=== PATIENT | male | born 1990 | race Caucasian/White ===

== ENCOUNTER 2019-03-30 18:01 | Emergency (ER) | payer OTHER ==
[~2019-03-30] VITALS: Ht 180.3 cm; Wt 56.7 kg
[2019-03-30 18:01] VITALS: BP 118/76
--- NOTE | 2019-03-30 18:09 | NUR ---
PT PLACED IN BED 3, STATED HE WISHED TO LEAVE AT THIS TIME. PT REFUSED MEDICAL CARE. PT ALERT TO NAME, BIRTHDAY AND PLACE. PT WALKED OUT OF HOSPITAL. DR HERNANDES MADE AWARE.
[2019-03-31] MEDS ORDERED: ONDANSETRON 4 MG ODT ONE (01:21)
== END 2019-03-30 18:09 | disposition left against medical advice (07) ==
LOC: EDBD → MED 18:01
DX: R40.4 Transient alteration of awareness (principal); Z53.21 Procedure and treatment not carried out due to patient leaving prior to being seen by health care provider
CPT/HCPCS: Q0162

== ENCOUNTER 2019-03-30 22:31 | Emergency (ER) | payer OTHER ==
[~2019-03-30] VITALS: Ht 172.7 cm; Wt 55.3 kg
--- NOTE | 2019-03-31 00:52 | NUR ---
PT REFUSED AN IV, ER MADE AWARE
--- NOTE | 2019-03-31 01:03 | NUR ---
Dr. Max examining patient.
[2019-03-31] MEDS ORDERED: ONDANSETRON 4 MG ODT PO ONE (01:15)
--- NOTE | 2019-03-31 01:15 | NUR ---
28 Y/O MALE PRESENTS TO ED WITH DRUG INGESTION. PT WAS TAKEN TO ED YESTERDAY FOR POSSIBLE DRUG INGESTION BUT LEFT. BYSTANDER NOTICED PT COMING OUTSIDE OF BUS AND TOOK PT TO ED. PT ENDORSED USING XANAX AND METHAMPHETAMINE, UNKNOWN AMOUNT. PT IS DISORGANIZED AND UNABLE TO STATE ANY INFORMATION ABOUT WELL BEING. PT PLACED ON MONITOR. ERMD MADE AWARE. WILL CONTINUE TO MONITOR.
[2019-03-31 01:16] VITALS: BP 117/66
[2019-03-31 03:00] VITALS: BP 109/65
--- NOTE | 2019-03-31 03:00 | NUR ---
PT DISCHARGED WITH PAPERWORK. EDUCATED PT REGARDING D/C DIAGNOSIS. TOLD PT TO FOLLOW UP WITH PCP AND WHEN TO RETURN TO ED. PT VSS. ALL QUESTIONS ANSWERED.
== END 2019-03-31 03:00 | disposition home or self-care (01) ==
LOC: MED 22:31 → EDBD 22:31 → MED 03-31 03:00
DX: F10.129 Alcohol abuse with intoxication, unspecified (principal); F11.10 Opioid abuse, uncomplicated; F19.10 Other psychoactive substance abuse, uncomplicated; Z59.0 Homelessness
CPT/HCPCS: 99282; 99283

== ENCOUNTER 2019-04-13 23:10 | Emergency (ER) | payer OTHER ==
[~2019-04-13] VITALS: Ht 177.8 cm; Wt 66.7 kg
[2019-04-13 23:25] VITALS: BP 119/67
--- NOTE | 2019-04-13 23:34 | NUR ---
PT TAKEN TO BED 6
--- NOTE | 2019-04-14 | NUR ---
28/M PRESENTS TO ED, C/O R LOWER MOLAR PAIN, WORSENING X1.5 WEEKS. PT STATED THAT HE HAS BEEN DEALING WITH A "CRACKED TOOTH" FOR A "FEW MONTHS" BUT HAS NOT BEEN ABLE TO GO TO [facility] TO HAVE TOOTH EXTRACTED. FEW CAVITIES NOTED. PT AWAKE AND ALERT, SKIN NORMAL COLOR WARM AND DRY, RR EVEN AND UNLABORED. DENIES MED HX OR RX.
[2019-04-14 01:00] VITALS: BP 119/67
--- NOTE | 2019-04-14 01:00 | NUR ---
PT WAS VERBALLY DISCHARGED BY DR LEONARD. PT LEFT WITHOUT DISCHARGE PAPERWORK AND RX.
--- NOTE | 2019-04-14 01:37 | NUR ---
Patient discharged with v/s stable. He states relief. Provided with [employer] resource packet, food, and nir pass. Homeless resource packet signed. He was in restroom without informing staff when DC was ready at 01:00. Written and verbal after care instructions given and explained. Patient alert, oriented and verbalized understanding of instructions. Ambulatory with steady gait. All questions addressed prior to discharge. ID band removed. Patient advised to follow up with PMD and when to return to ER. Rx of Amoxicillin, Naprosyn, and [place] given. Patient educated on indication of medication including possible reaction and side effects. Opportunity to ask questions provided and answered.
== END 2019-04-14 01:37 | disposition home or self-care (01) ==
LOC: MED 23:29
DX: K08.89 Other specified disorders of teeth and supporting structures (principal); F17.210 Nicotine dependence, cigarettes, uncomplicated; Z98.890 Other specified postprocedural states; Z71.6 Tobacco abuse counseling
CPT/HCPCS: 99283

== ENCOUNTER 2019-07-10 23:07 | Emergency (ER) | payer OTHER ==
--- NOTE | 2019-07-10 23:17 | NUR ---
PATIENT CALLED FOR TRIAGE NO ANSWER. REPORTED TO ADMITTED THAT THEY WERE LEAVING AND NO LONGER WANTED TO BE SEEN.
--- NOTE | 2019-07-10 23:17 | NUR ---
PATIENT LEFT WITHOUT BEING SEEN BY DR. PEREZ. NO FURTHER CARE PROVIDED FOR PATIENT.
--- NOTE | 2019-07-10 23:30 | NUR ---
PATIENT CALLED FROM WAITING ROOM, NO ANSWER
== END 2019-07-10 23:17 | disposition left against medical advice (07) ==
LOC: MED 23:07
DX: L02.519 Cutaneous abscess of unspecified hand (principal); Z53.21 Procedure and treatment not carried out due to patient leaving prior to being seen by health care provider